=== PATIENT | female | born 1985 | race Two or more races ===

== ENCOUNTER 2023-10-14 10:42 | Outpatient (CLI) | payer OTHER ==
[2023-10-15 08:06] LABS: ESTRADIOL 47.2 pg/mL (.); FOLLICLE STIMULATION HORMONE 8.1 mIU/mL (.); LUETENIZING HORMONE 4.9 mIU/mL (.)
== END 2023-10-14 18:48 | disposition home or self-care (01) ==
LOC: SLB 10:42
PROVIDERS: ATTEND Specialist
DX: N92.6 Irregular menstruation, unspecified (principal)
CPT/HCPCS: 36415; 82670; 83001; 83002

== ENCOUNTER 2024-02-06 12:47 | Outpatient (CLI) | payer OTHER | END 2024-02-06 21:09 | disposition home or self-care (01) | LOC: SLB 12:47 | PROVIDERS: ATTEND Specialist | DX: N91.2 Amenorrhea, unspecified (principal) | CPT/HCPCS: 36415; 84144; 84702 ==

== ENCOUNTER 2024-02-08 12:33 | Outpatient (CLI) | payer OTHER | END 2024-02-08 21:06 | disposition home or self-care (01) | LOC: SLB 12:33 | PROVIDERS: ATTEND Specialist | DX: N91.2 Amenorrhea, unspecified (principal) | CPT/HCPCS: 36415; 84144; 84702 ==

== ENCOUNTER 2024-03-22 06:19 | Day surgery (SDC) | payer OTHER ==
[2024-03-19 15:08] LABS: BILIRUBIN,URINE NEGATIVE (NEGATIVE); BLOOD, URINE 1+ (NEGATIVE); COLOR,URINE YELLOW (YELLOW); GLUCOSE,URINE NEGATIVE (NEGATIVE); KETONES,URINE NEGATIVE (NEGATIVE); LEUKOCYTE ESTERASE ,URINE NEGATIVE (NEGATIVE); NITRITE, URINE NEGATIVE (NEGATIVE); PROTEIN URINE NEGATIVE (NEGATIVE); UROBILINOGEN,URINE 0.2 (0.2-1.0)
[2024-03-19 15:09] LABS: CLARITY/URINE SLIGHTLY HAZY (CLEAR)
[2024-03-19 15:16] LABS: BASOPHILS % (AUTO) 0.5 % (0.0-2.0); EOSINOPHILS # (AUTO) 0.1 K/uL (0.0-0.4); EOSINOPHILS % (AUTO) 1.5 % (0.0-4.0); HEMATOCRIT 35.4 % (36-48); HEMOGLOBIN 12.2 g/dL (12.0-16.0); LYMPHOCYTES # (AUTO) 1.9 K/uL (1.0-5.5); LYMPHOCYTES % (AUTO) 18.9 % (20.5-51.5); MEAN CORPUSCULAR HEMOGLOBIN 31 pg (27-31); MEAN CORPUSCULAR HGB CONC 34 % (32-36); MEAN CORPUSCULAR VOLUME 91 fL (79.0-98.0); MONOCYTES # (AUTO) 0.7 K/uL (0.0-1.0); MONOCYTES % (AUTO) 6.8 % (1.7-9.3); NEUTROPHILS # (AUTO) 7.3 K/uL (1.8-7.7); NEUTROPHILS % (AUTO) 72.3 % (40.0-70.0); PLATELET COUNT (AUTO) 292 K/uL (130-430); RED BLOOD CELL COUNT(AUTO) 3.89 MIL/uL (4.2-6.2); RED CELL DISTRIBUTION WIDTH 12.8 % (9.0-15.0); WHITE BLOOD COUNT (AUTO) 10.1 K/uL (4.8-10.8)
[2024-03-19 15:21] LABS: BACTERIA,URINE MODERATE /HPF (None Seen)
[~2024-03-22] VITALS: Ht 160 cm; Wt 65.8 kg
[2024-03-22] MEDS ORDERED: CEFAZOLIN SOD 2 GM in D5W 50 ML IV ONE (07:00)
[2024-03-22 07:34] VITALS: O2SAT 100
[2024-03-22] MEDS ORDERED: DEXAMETHASONE SOD PHOSPHATE 4 MG/ML VIAL ONE (07:50)
[2024-03-22] MEDS ORDERED: MIDAZOLAM HCL 2 MG/2 ML VIAL (VERSED) ONE (07:55)
[2024-03-22] MEDS ORDERED: fentaNYL CITRATE/PF 100 MCG/2 ML AMP ONE (07:56)
[2024-03-22] MEDS ORDERED: hydrALAZINE HCL 20 MG/ML VIAL IV PRN (08:30)
[2024-03-22] MEDS ORDERED: KETOROLAC TROMETHAMINE 30 MG VIAL IM PRN (08:30)
[2024-03-22] MEDS ORDERED: NALOXONE HCL 0.4 MG/ML AMP (NARCAN) IVP PRN ×2 (08:30→08:45)
[2024-03-22] MEDS ORDERED: HYDROmorphone 1 MG/ML INJ. CARTRIDGE IVP PRN (08:30)
[2024-03-22] MEDS ORDERED: ONDANSETRON HCL 4 MG/2 ML VIAL IVP PRN ×2 (08:30→08:45)
[2024-03-22] MEDS ORDERED: KETOROLAC TROMETHAMINE 30 MG VIAL IVP ONE (08:45)
[2024-03-22] MEDS ORDERED: HYDROmorphone 2 MG TAB PO PRN (08:45)
[2024-03-22] MEDS: KETOROLAC TROMETHAMINE 30 MG VIAL ONE (09:35)
[2024-03-22 12:28] VITALS: BP_SYST 100; PULSE 87; RESP 17
== END 2024-03-22 12:10 | disposition home or self-care (01) ==
LOC: SDS 06:19 → SMU 06:20 → SDS 12:10
PROVIDERS: ATTEND Specialist
DX: O34.31 Maternal care for cervical incompetence, first trimester (principal); D64.9 Anemia, unspecified; Z88.5 Allergy status to narcotic agent; Z87.891 Personal history of nicotine dependence; Z3A.11 11 weeks gestation of pregnancy; Z3A.10 10 weeks gestation of pregnancy
CPT/HCPCS: 81000; 81001; 85025; 86886; 86900; 86901; 87081; 36415; 59812; 86920; 88305; 99152; J0690; J1100; J1885; J3465; J3010; J7060; J7120; 81015

== ENCOUNTER 2024-05-29 14:04 | Outpatient (CLI) | payer OTHER | END 2024-05-29 19:17 | disposition home or self-care (01) | LOC: SLB 14:04 | PROVIDERS: ATTEND Specialist | DX: N91.2 Amenorrhea, unspecified (principal) | CPT/HCPCS: 36415; 84144; 84702 ==

== ENCOUNTER 2024-05-31 12:08 | Outpatient (CLI) | payer OTHER | END 2024-05-31 19:52 | disposition home or self-care (01) | LOC: SLB 12:08 | PROVIDERS: ATTEND Specialist | DX: N92.5 Other specified irregular menstruation (principal) | CPT/HCPCS: 36415; 84144; 84702 ==

== ENCOUNTER 2024-06-05 13:23 | Outpatient (CLI) | payer OTHER | END 2024-06-05 18:08 | disposition home or self-care (01) | LOC: SRD 13:23 → SLB 18:08 | PROVIDERS: ATTEND Specialist | DX: N92.5 Other specified irregular menstruation (principal) | CPT/HCPCS: 36415; 84144; 84702 ==